=== PATIENT | male | born 1975 | race Caucasian/White ===

== ENCOUNTER 2018-06-21 14:31 | Emergency (ER) | payer BC ==
[~2018-06-21] VITALS: Ht 170.2 cm; Wt 88.6 kg
[2018-06-21] MEDS ORDERED: ROSU5TAB4 PO (14:37)
[2018-06-21] MEDS ORDERED: LOSA100T50 PO (14:37)
--- NOTE | 2018-06-21 16:37 | REP ---
LEFT TIBIA-FIBULA, FOUR VIEWS: HISTORY: Trauma. There is no acute fracture or dislocation. The joint spaces are normal in appearance. Osteophytes are present on the inferior and posterior calcaneus. IMPRESSION: There is no acute fracture or dislocation. Electronically Signed by Perry Parada MD 06/21/2018 04:42 P
[2018-06-21 17:04] VITALS: BP 142/99
== END 2018-06-21 17:17 | disposition home or self-care (01) ==
LOC: M ED 14:31
DX: S80.12XA Contusion of left lower leg, initial encounter (principal); W22.09XA Striking against other stationary object, initial encounter; Y92.096 Garden or yard of other non-institutional residence as the place of occurrence of the external cause; I10 Essential (primary) hypertension; F17.210 Nicotine dependence, cigarettes, uncomplicated; Z79.899 Other long term (current) drug therapy